=== PATIENT | male | born 1985 | race Hispanic/Latino ===

== ENCOUNTER 2022-06-10 06:16 | Emergency (ER) | payer SELFPAY ==
[~2022-06-10] VITALS: Ht 185.4 cm; Wt 117.9 kg
[2022-06-10 06:16] VITALS: BP 154/93
--- NOTE | 2022-06-10 06:16 | NUR ---
ARRIVAL ARRIVED VIA EMS. ALERT AND ORIENTED X3. HANDCUFFED BEHIND BACK. POLICE OFFICERS X2 AT BEDSIDE. RAN FROM POLICE IN CAR AND ON FOOT. RAN INTO BARBED WIRE FENCE HAS CUTS ON THIGHS BILAT. RIGHT ANKLE PAIN 7/10 ON NUMERICAL SCALE. PT STATED, "I AM HIGH. I HAVE TAKEN COCAINE, WEED AND COMING OFF OF [employer]." HAD TETNUS VACCINE WHEN RELEASED FROM [facility] A YEAR AGO. SWELLING NOTED TO RIGHT ANKLE. SKIN INTACT, NO REDNESS NOTED. NOTIFIED DR. MONTALVO. AWAITING NEW ORDERS.
[2022-06-10] MEDS ORDERED: BOOSTRIX IM ONE ×2 (06:30→06:37)
--- NOTE | 2022-06-10 06:36 | ER.PDOC ---
General Chief Complaint: Extremities Stated Complaint: ANKLE PAIN Time seen by MD: 06:32 Source: patient Exam Limitations: no limitations History of Present Illness Initial Comments Right ankle pain this morning. Patient was running from the police and twisted his right ankle. He also has scratches on both thighs from a back wire. Onset: just prior to arrival Context: twist Severity: moderate Allergies: Coded Allergies: No Known Allergies (Unverified , 06/10/22) Past Medical History Medical History: no pertinent history Surgical History: no surgical history Family History Significant Family History: no pertinent family hx Social History Smoking: greater than 1 pack/day Alcohol Use: occassionally Drug Use: cocaine, marijuana, Amphetamines Review of Systems Constitutional: no symptoms reported EENTM: no symptoms reported Respiratory: no symptoms reported Cardiovascular: no symptoms reported Gastrointestinal: no symptoms reported Skin: see HPI All Other Systems: Reviewed and Negative Physical Exam General Appearance: Alert, No Apparent Distress Foot: nml inspection, non-tender, nml color/temp, skin intact Ankle: tenderness (Right ankle with swelling) Knee: nml inspection, non-tender, nml ROM, no joint swelling Thigh/Hip: nml inspection Gait: limited by pain Neuro/Vasc/Tendon: sensation nml, motor nml, no vascular compromise, tendon function nml Skin: warm/dry Head/ENT: nml inspection, pharynx nml Neck/Back: nml inspection, non-tender Abdomen: non-tender, pelvis stable Comments Abrasion both thighs. Results/Orders Results/Orders Orders - HARLEEN MONTALVO MD Xr Ankle 3v Rt (06/10/22 06:30) Diph,Pertuss(Acell),Tet Vac/Pf (Boostrix (06/10/22 06:30) Diph,Pertuss(Acell),Tet Vac/Pf (Boostrix (06/10/22 06:37) Vital Signs Date Time Temp Pulse Resp B/P (MAP) Pulse Ox O2 Delivery O2 Flow Rate FiO2 06/10/22 06:16 98.1 138 20 06/10/22 06:16 98.1 138 20 154/93 (113) 98 Room Air* 0 21 06/10/22 06:16 98.1 138 20 98 Administered Medications Medications (Trade) Dose Ordered Sig/Jasmin Route PRN Reason Start Time Stop Time Status Last Admin Dose Admin Diphtheria/ Tetanus/Acell Pertussis (Boostrix) 0.5 ml ONCE ONCE IM 06/10/22 06:30 06/10/22 06:32 DC 06/10/22 06:38 0.5 ML Progress Progress X-rays of right ankle which showed no fracture. Patient received an Croey wrap. He is tachycardic because he has drugs on board. He said that he has meth, cocaine and marijuana. He also received a tetanus shot. ER DEPART Departure Time of Disposition: 07:02 Disposition: 01 HOME / SELF CARE / HOMELESS Impression: Primary Impression: Injury of ankle, right Additional Impression: Abrasion NEC Condition: Stable Additional Instructions: Ice Ibuprofen Clean abrasions daily and apply Neosporin Follow-up with your PCP 1 week Return to ED if worsening or concerns Duration or Time Spent with Pa: 10 min Problem Qualifiers Primary Impression: Injury of ankle, right Encounter type: initial encounter Qualified Codes: S99.911A - Unspecified injury of right ankle, initial encounter HARLEEN MONTALVO MD Jun 10, 2022 06:36
--- NOTE | 2022-06-10 06:54 | DIREP ---
PROCEDURE:XRAY ANKLE MIN 3VWS-RT COMPARISON:None. INDICATIONS:Pain FINDINGS: BONES:No fracture. Tiny posterior calcaneal spur. Small osteophytes about the ankle. JOINTS:No dislocation. The ankle mortise is symmetric. Mild tibiotalar osteoarthritis. SOFT TISSUES:Mild soft tissue swelling overlying the lateral malleolus. OTHER:No additional findings. CONCLUSION: 1. Mild soft tissue swelling overlying the right lateral malleolus. No acute osseous abnormality. 2. Mild right ankle osteoarthritis. 3. Tiny posterior calcaneal spur. Dictated by: Estevan Bowman MD on 06/10/2022 at 06:52 AM
[2022-06-10] MEDS ORDERED: MOTRIN PO STA (07:08)
[2022-06-10 07:10] VITALS: BP 179/110
[2022-06-10] MEDS ORDERED: MOTRIN ONE (07:13)
== END 2022-06-10 07:22 | disposition home or self-care (01) ==
LOC: ER 06:16 → EDBD 06:16 → ER 07:22
DX: S70.312A Abrasion, left thigh, initial encounter (principal); S70.311A Abrasion, right thigh, initial encounter; S99.911A Unspecified injury of right ankle, initial encounter; F10.20 Alcohol dependence, uncomplicated; F12.90 Cannabis use, unspecified, uncomplicated; F15.90 Other stimulant use, unspecified, uncomplicated; F17.210 Nicotine dependence, cigarettes, uncomplicated; X50.1XXA Overexertion from prolonged static or awkward postures, initial encounter; Y93.02 Activity, running; Y92.89 Other specified places as the place of occurrence of the external cause; Y99.8 Other external cause status
CPT/HCPCS: 90471; 90715; 99283; 73610-RT